=== PATIENT | female | born 1985 | race Caucasian/White ===

== ENCOUNTER 2016-11-30 20:31 | Day surgery (SDC) | payer BC ==
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
[2016-11-30 22:37] VITALS: BP 129/66; TEMP 98.9; BMI 27.8
== END 2016-11-30 21:55 | disposition home or self-care (01) ==
LOC: L&D/OP 20:31 → ERS 20:31 → EDSTATUS 20:40 → L&D/OP 21:55
PROVIDERS: ATTEND Obstetrics & Gynecology
DX: O99.89 Other specified diseases and conditions complicating pregnancy, childbirth and the puerperium (principal); Z88.1 Allergy status to other antibiotic agents; Z88.5 Allergy status to narcotic agent; Z91.048 Other nonmedicinal substance allergy status; Z79.899 Other long term (current) drug therapy; Z3A.25 25 weeks gestation of pregnancy

== ENCOUNTER 2017-02-14 17:00 | Day surgery (SDC) | payer BC ==
[2017-02-14 17:05] VITALS: BMI 27.8
[2017-02-14] MEDS ORDERED: Acetaminophen 500 MG TAB PO SCH (17:45)
[2017-02-14] MEDS ORDERED: Iron Sucrose Complex 500 MG in Sodium Chloride 0.9% 250 ML 250 ML IVPB SCH (18:00)
[2017-02-14 18:04] VITALS: BP 111/67; TEMP 97
== END 2017-02-14 23:10 | disposition home or self-care (01) ==
LOC: L&D/OP 17:00
PROVIDERS: ATTEND Obstetrics & Gynecology
DX: O99.019 Anemia complicating pregnancy, unspecified trimester (principal); Z3A.00 Weeks of gestation of pregnancy not specified; Z79.84 Long term (current) use of oral hypoglycemic drugs; Z79.899 Other long term (current) drug therapy; Z88.1 Allergy status to other antibiotic agents; Z88.5 Allergy status to narcotic agent; Z91.048 Other nonmedicinal substance allergy status
CPT/HCPCS: 96361; 96365; 96366; 99283; J1756; J7050

== ENCOUNTER 2017-02-27 11:12 | Inpatient (IN) | payer BC ==
[2017-02-27 11:38] VITALS: BMI 31.0
[2017-02-27 14:57] LABS: Hemoglobin 11.5 g/dL (12.0-16.0); Mean Corpuscular HGB CONC 32.8 g/dL (32.0-36.0); Mean Corpuscular Hemoglobin 30.2 pg (27.0-31.0); Mean Platelet Volume 11.9 fL (7.4-10.4); Platelet Count 108 thou/uL (130-400); RBC Distribution Width 15.6 % (11.5-14.5); White Blood Cell (WBC) Count 7.3 thou/uL (4.8-10.8)
[2017-02-27 15:08] LABS: ALT (SGPT) 23 U/L (8-55); AST (SGOT) 38 U/L (5-34); Albumin 3.3 g/dL (3.5-5.0); Alkaline Phosphatase 150 U/L (40-150); Anion Gap 11 mmol/L (10-20); BUN (Urea Nitrogen) 9 mg/dL (7.0-18.7); Bilirubin, Total 0.4 mg/dL (0.2-1.2); Calc. Creatinine Clearance 149 mL/min (70-130); Carbon Dioxide 21 mmol/L (22-29); Chloride 108 mmol/L (98-107); Estimated GFR-MDRD 80; Globulin 3.3 g/dL (2.4-3.5); Glucose 102 mg/dL (70-105); Potassium 3.8 mmol/L (3.5-5.1); Protein, Total 6.6 g/dL (6.0-8.3); Sodium 136 mmol/L (136-145); Uric Acid 6.8 mg/dL (2.6-6.0)
[2017-02-27] MEDS ORDERED: Lidocaine 1% (PF) 30 ML VIAL SC PRN (15:58)
[2017-02-27] MEDS ORDERED: HYDROcodone/Acetaminophen 5/325 mg Tablet PO PRN ×2 (15:58)
[2017-02-27] MEDS ORDERED: LR / Pitocin 40 units/1000 ml 1,000 ML IV PRN (15:58)
[2017-02-27] MEDS ORDERED: Misoprostol 100 MCG TAB VAG SCH (16:00)
[2017-02-27] MEDS: Lactated Ringer's 1,000 ML IV SCH (17:10)
[2017-02-27 17:17] LABS: Syphilis Antibody Nonreactive (Nonreactive); Syphilis Antibody Index 0.04 S/CO (<1.00 Non-Reactive)
[2017-02-27 17:18] LABS: HBSAg Index 0.18 S/CO (0-0.99); Hep B Surf Ag Non-Reactive S/CO (NonReactive)
[2017-02-27] MEDS: Misoprostol 100 MCG TAB VAG SCH (21:34)
[2017-02-28] MEDS ORDERED: Zolpidem Tartrate 5 MG TAB PO SCH (00:30)
[2017-02-28] MEDS: Misoprostol 100 MCG TAB VAG SCH (00:42)
[2017-02-28] MEDS: Lactated Ringer's 1,000 ML IV SCH (00:42)
[2017-02-28] MEDS ORDERED: LR 500 ML/Oxytocin 10 units 500 ML ONE (04:58)
[2017-02-28] MEDS ORDERED: LR 500 ML/Oxytocin 10 units 500 ML IV SCH (05:30)
[2017-02-28] MEDS: Ondansetron HCl/PF 4 MG/2 ML Vial IVP PRN ×2 (06:01→16:34)
[2017-02-28] MEDS: Dextrose 5%-Lactated Ringers 1,000 ML IV SCH ×2 (06:04→21:39)
[2017-02-28] MEDS ORDERED: Fentanyl 4 mcg/Marc 0.1% Cadd 100 ML ONE (07:41)
[2017-02-28] MEDS ORDERED: Promethazine HCl 25 MG/ML VIAL IM PRN (08:11)
[2017-02-28] MEDS ORDERED: Lactated Ringer's 500 ML IV PRN (08:11)
[2017-02-28] MEDS ORDERED: Ondansetron HCl/PF 4 MG/2 ML Vial IVP PRN (08:11)
[2017-02-28] MEDS ORDERED: ePHEDrine/0.9% NaCl/PF SYRINGE 50 mg/10 ml SLOW IVP PRN (08:11)
[2017-02-28] MEDS ORDERED: diphenhydrAMINE 50 MG/ML VIAL IVP PRN (08:11)
[2017-02-28] MEDS ORDERED: Naloxone HCl 0.4 mg/ml Vial IVP PRN ×2 (08:11)
[2017-02-28] MEDS ORDERED: Eucerin (Mineral Oil/Petrolatum,White) 30 gm Jar TOP PRN (08:11)
[2017-02-28] MEDS ORDERED: Acetaminophen 325 MG TAB PO PRN (08:11)
[2017-02-28] MEDS ORDERED: Communication Order-Pharmacy FS SCH (08:15)
[2017-02-28] MEDS: Fentanyl 4mcg/Marcaine 0.1% Cassette 100 ML EPIDURAL SCH ×2 (13:15→17:35)
--- NOTE | 2017-02-28 14:32 | PDOC.EVN ---
Event Note - Event Note Event Note: Asked by Dr Honeycutt to place IPUC/AROM. AROM done without issue about 15 minutes ago. Clear fluid. //cep. IUPC placed. Strip reviewed.
[2017-02-28] MEDS ORDERED: Fentanyl 100 MCG/2 ML VIAL ONE (20:07)
[2017-02-28] MEDS ORDERED: diphenhydrAMINE 25 MG CAP PO PRN (21:06)
[2017-02-28] MEDS ORDERED: Benzocaine/Menthol 20-0.5% 60 ML CAN TOP PRN (21:06)
[2017-02-28] MEDS ORDERED: Milk Of Magnesia 30 ML UDCUP PO PRN (21:06)
[2017-02-28] MEDS ORDERED: Bisacodyl 10 MG SUPP PR PRN (21:06)
[2017-02-28] MEDS ORDERED: Preparation H Ointment 28 GM TUBE PR PRN (21:06)
[2017-02-28] MEDS ORDERED: traMADol HCl 50 MG TAB PO PRN (21:06)
--- NOTE | 2017-02-28 21:09 | PDOC.OPDEL ---
OB Operative/Delivery Note Delivery Dr/Surgeon: Yinka Pre-Delivery Diagnosis: medically indicated induction Procedure/Post Delivery Dx: operative vaginal delivery Weeks gestation: 38 Anesthesia: epidural - Findings A Sex: female Weight: 5 lb 13 oz - 1 min: 4 - 5 min: 8 - Additional Findings/Plan Placenta delivered: spontaneous Repaired Obstetrical Laceration: 2nd degree Estimated blood loss: 200ml
[2017-02-28] MEDS ORDERED: LR / Pitocin 40 units/1000 ml 1,000 ML IV SCH (21:15)
[2017-02-28] MEDS ORDERED: Labetalol HCl 100 MG/20 ML VIAL SLOW IVP PRN (21:15)
[2017-02-28] MEDS ORDERED: NIFEdipine XL 30 MG TAB PO SCH (21:30)
[2017-02-28] MEDS: traMADol HCl 50 MG TAB PO PRN (22:44)
[2017-02-28] MEDS: Ibuprofen 800 MG TAB PO SCH (22:45)
[2017-03-01] MEDS: Ibuprofen 800 MG TAB PO SCH ×3 (06:15→21:37)
[2017-03-01] MEDS: Prenatal Vitamin 1 TAB PO SCH (08:28)
[2017-03-01] MEDS: Docusate Calcium (SURFAK) 240 MG CAP PO SCH ×2 (08:28→21:37)
[2017-03-01] MEDS: Ferrous Sulfate 325 MG TAB PO SCH ×2 (08:29→15:56)
[2017-03-01] MEDS: NIFEdipine XL 30 MG TAB PO SCH (08:29)
[2017-03-01] MEDS ORDERED: Lidocaine 2% MPF 10 ML AMP (For Epidural Use) ONE (08:48)
[2017-03-01] MEDS ORDERED: Adacel (T-DAP) 0.5 ML VIAL IM ONE (09:00)
--- NOTE | 2017-03-01 10:11 | PDOC.PP ---
Post Progress Note Post Day #: 1 PO intake tolerated: yes Flatus: yes Ambulation: yes Vital Signs (12 hours) Temp Pulse Resp BP BP BP 03/01/17 08:29 55 L 03/01/17 08:05 98.0 F 55 L 18 03/01/17 08:03 98.0 F 55 L 18 144/81 H 03/01/17 04:00 98.1 F 68 16 129/78 03/01/17 02:05 98.1 F 63 16 160/97 H 03/01/17 01:00 98.0 F 56 L 16 151/94 H 02/28/17 22:45 55 L 165/83 H Weight Weight 210 lb - Physical Examination General: NAD Cardiovascular: no m/r/g, RRR Respiratory: clear to auscultation bilaterally, non-labored breathing Abdominal: + bowel sounds, lochia, no distention, appropriately TTP Result Diagrams: 02/27/17 14:34 02/27/17 14:34 Additional Labs: Post Labs Hep Bs Antigen Non-Reactive S/CO (NonReactive) 02/27/17 14:25 - Assessment/Plan post mpartum day 0-1. gestational htn s/p . Initiated procardia 30 mg xl...continue to observe blood pressures. PRN clonidine prn >160.. anticiapte d/c in AM.
[2017-03-01] MEDS ORDERED: cloNIDine 0.1 MG TAB PO PRN (10:12)
[2017-03-01] MEDS ORDERED: HYDROcodone/Acetaminophen 5/325 mg Tablet PO SCH ×2 (14:15→20:00)
[2017-03-01] MEDS: traMADol HCl 50 MG TAB PO PRN (17:34)
[2017-03-02] MEDS: Ibuprofen 800 MG TAB PO SCH ×2 (05:35→13:57)
--- NOTE | 2017-03-02 07:58 | PDOC.PP ---
Post Progress Note Post Day #: 2 PO intake tolerated: yes Flatus: yes Ambulation: yes Vital Signs (12 hours) Temp Pulse Resp BP 03/02/17 03:15 73 132/78 03/01/17 20:00 97.8 F 61 16 142/84 H Weight Weight 210 lb - Physical Examination General: NAD Cardiovascular: no m/r/g, RRR Respiratory: clear to auscultation bilaterally, non-labored breathing Abdominal: + bowel sounds, lochia, no distention, appropriately TTP Result Diagrams: 02/27/17 14:34 02/27/17 14:34 Additional Labs: Post Labs Hep Bs Antigen Non-Reactive S/CO (NonReactive) 02/27/17 14:25 - Assessment/Plan PPD#2 gestional htn-controlled on procardia 30 mg xl d/c home. to continue bp check at home and f/u in one week and 6 weeks
[2017-03-02 08:04] VITALS: BP 136/84; TEMP 98
[2017-03-02] MEDS: Ferrous Sulfate 325 MG TAB PO SCH (09:20)
[2017-03-02] MEDS: Docusate Calcium (SURFAK) 240 MG CAP PO SCH (09:21)
[2017-03-02] MEDS: NIFEdipine XL 30 MG TAB PO SCH (09:21)
[2017-03-02] MEDS: Prenatal Vitamin 1 TAB PO SCH (09:23)
== END 2017-03-02 14:20 | disposition home or self-care (01) | DRG 775 ==
LOC: L&D/OP 11:12 → L&D 17:03 → 3SW 03-01 00:53
PROVIDERS: ADMIT Obstetrics & Gynecology; ATTEND Obstetrics & Gynecology
PROC: 10E0XZZ Delivery of Products of Conception, External Approach (ICD-10-PCS; principal; 2017-02-28)
PROC: 0KQM0ZZ Repair Perineum Muscle, Open Approach (ICD-10-PCS; 2017-02-28)
PROC: 0U7C7ZZ Dilation of Cervix, Via Natural or Artificial Opening (ICD-10-PCS; 2017-02-28)
DX: O13.4 Gestational [pregnancy-induced] hypertension without significant proteinuria, complicating childbirth (principal); E03.9 Hypothyroidism, unspecified; O99.284 Endocrine, nutritional and metabolic diseases complicating childbirth; O76 Abnormality in fetal heart rate and rhythm complicating labor and delivery; O70.1 Second degree perineal laceration during delivery; Z3A.38 38 weeks gestation of pregnancy; Z37.0 Single live birth
CPT/HCPCS: 36415; 51702; 80053; 82570; 83615; 84156; 84550; 85027; 86780; 87340; C1726; J0595; J2001; J2405; J3010; J7120

== ENCOUNTER 2017-07-27 07:39 | Outpatient (CLI) | payer BC ==
--- NOTE | 2017-07-27 11:40 | NM ---
HEPATOBILIARY SCAN: HISTORY: Right upper quadrant pain. RADIOPHARMACEUTICAL: 5 mCi Technetium 99m-mebrofenin injected intravenously. FINDINGS: There is good tracer extraction by the liver with prompt excretion into the biliary tract and small b owel loops and normal filling of the gallbladder. The calculated gallbladder ejection fraction follo wing an oral fatty meal measures 67%. IMPRESSION: Normal exam. POS: H
== END 2017-07-27 07:40 | disposition home or self-care (01) ==
LOC: NM 07:39
PROVIDERS: ATTEND Physician Assistant
DX: R10.11 Right upper quadrant pain (principal)
CPT/HCPCS: 78227; A9537

== ENCOUNTER 2017-12-20 18:40 | Emergency (ER) | payer BC ==
[2017-12-20 19:24] LABS: #Basophils 0.1 thou/uL (0.0-0.2); #Lymphocytes 2.9 thou/uL (1.20-3.40); #Monocytes 0.6 thou/uL (0.11-0.59); #Neutrophils 2.6 thou/uL (1.40-6.50); %Eosinophils 0.5 % (0.0-10.0); %Lymphocytes 46.2 % (21.0-51.0); %Monocytes 9.8 % (0.0-10.0); %Neutrophils 42.4 % (42.0-75.0); Hemoglobin 12.8 g/dL (12.0-16.0); Mean Corpuscular HGB CONC 32.1 g/dL (32.0-36.0); Mean Corpuscular Hemoglobin 28.4 pg (27.0-31.0); Mean Corpuscular Volume 88.5 fL (78.0-98.0); Platelet Count 207 thou/uL (130-400); RBC Distribution Width 11.1 % (11.5-14.5); Red Blood Cell (RBC) Count 4.52 mill/uL (4.20-5.40); White Blood Cell (WBC) Count 6.2 thou/uL (4.8-10.8)
[2017-12-20 19:29] LABS: Bilirubin Negative (Negative); Blood, Urine Negative (Negative); Clarity CLEAR (Clear); Glucose, Urine (Dipstick) Negative (Negative); Leukocyte Negative (Negative); Nitrite Negative (Negative); Protein, Urine (Dipstick) Negative (Neg-Trace); Specific Gravity, Urine 1.031 (1.002-1.036)
[2017-12-20 19:37] LABS: Pregnancy Test - Urine (BHCG) Negative (Negative); Pregu Control Background? CLEAR/WHITE (CLR/WHITE); Pregu Control Bar Appear? YES (CONTROL BAR); Specific Gravity 1.031 (1.002-1.036)
[2017-12-20 19:45] LABS: ALT (SGPT) 19 U/L (8-55); AST (SGOT) 23 U/L (5-34); Albumin 4.3 g/dL (3.5-5.0); Alkaline Phosphatase 73 U/L (40-150); Anion Gap 12 mmol/L (10-20); BUN (Urea Nitrogen) 18 mg/dL (7.0-18.7); Bilirubin, Total 0.3 mg/dL (0.2-1.2); Calc. Creatinine Clearance 0 mL/min (70-130); Calcium 9.8 mg/dL (7.8-10.44); Carbon Dioxide 26 mmol/L (22-29); Chloride 106 mmol/L (98-107); Estimated GFR-MDRD 76; Globulin 3.4 g/dL (2.4-3.5); Glucose 106 mg/dL (70-105); Potassium 4.2 mmol/L (3.5-5.1); Protein, Total 7.7 g/dL (6.0-8.3); Sodium 140 mmol/L (136-145)
[2017-12-20] MEDS ORDERED: Meclizine HCl 25 MG TAB ONE (20:25)
--- NOTE | 2017-12-20 20:49 | CT ---
CT OF THE BRAIN WITHOUT CONTRAST 12/20/17 INDICATION: History of dizziness for 1.5 weeks. COMPARISON: None. FINDINGS: No acute infarct, hemorrhage, or hydrocephalus is present. Septum pellucidum and third ventricle are midline. Mastoid air cells and paranasal sinuses are clear. Skull is intact. IMPRESSION: No acute intracranial abnormality. POS: HEIDI
== END 2017-12-20 21:45 | disposition home or self-care (01) ==
LOC: ERS 18:40
DX: H83.09 Labyrinthitis, unspecified ear (principal); F41.9 Anxiety disorder, unspecified; F32.9 Major depressive disorder, single episode, unspecified
CPT/HCPCS: 36415; 70450; 80053; 81003; 81025; 85025; 93005; 96360

== ENCOUNTER 2023-02-02 13:52 | Outpatient (CLI) | payer BC | END 2023-02-02 13:53 | disposition home or self-care (01) | LOC: SCSMRI 13:52 | PROVIDERS: ATTEND Neurological Surgery | DX: M54.14 Radiculopathy, thoracic region (principal) | CPT/HCPCS: 72146 ==